=== PATIENT | female | born 1985 | race Caucasian/White ===

== ENCOUNTER → 2019-02-26 | Outpatient (CLI) | payer OTHER ==
--- NOTE | 2019-02-26 16:32 | EXE ---
[place] [address] STRESS ECHOCARDIOGRAM Name: DIANE DÍAZ Room: [facility]#: [id number] Admission: 02/26/19 Attend Phys: Sergo Acuña, Discharge: Date of : 85 Date of Service: 02/26/19 1631 Report #: [id number] THIS REPORT FOR: //name// APPROVED REPORT Study performed: 02/26/2019 15:23:31 Exam: Stress Echocardiogram Indication: Syncope Patient Location: Out-Patient Stress Nurse: Kirsty Michael RN Supervising Physician: Etienne Shi MD Ht: 5 ft 2 in HR: 78 bpm BP: 135/88 mmHg Medical History Cardiac Risk Factors: FHX of CAD Procedure The patient underwent an Exercise Stress Test using the Abdi Protocol. Blood pressure, heart rate, and EKG were monitored. An Echocardiogram was performed by sales technician in four stages in quad fashion. At peak stress, four selected images were obtained and placed side by side with resting images for comparison. Stress Test Details Stress Test: Exercise stress testing was performed using a Abdi protocol. HR Resting HR: 78 bpm Max Heart Rate (APMHR): 186 bpm Max HR Achieved: 178 bpm Target HR (85% APMHR): 158 bpm % of APMHR: 95 Recovery HR: 98 bpm HR response to stress: Normal HR response to stress BP Resting BP: 135/88 mmHg Max BP: 172/83 mmHg Recovery BP: 112/80 mmHg BP response to stress: Normal blood pressure response to stress. ECG Resting ECG: Sinus Rhythm Stress ECG: Sinus Rhythm, [place] [address] STRESS ECHOCARDIOGRAM Name: DIANE DÍAZ Room: [facility]#: [id number] Admission: 02/26/19 Attend Phys: Sergo Acuña, Discharge: Date of : 85 Date of Service: 02/26/19 1631 Report #: [id number] ST Change: Upsloping ST depression Maximum ST Deviation: 0.5 mm Arrhythmia: None Recovery ECG: Sinus Rhythm Recovery ST Change: Normal Recovery ST Deviation: 0 mm Recovery Arrhythmia: None Clinical Reason for Termination: Completed protocol Exercise duration: 7 min 43 sec Highest Stage Achieved: Stage 3: 3.4 mph at 14% grade. Exercise capacity: 9.71 METs Pre-Stress Echo The resting Echocardiogram showed normal left ventricular contractility with an estimated Ejection Fraction of about 60-65%. Post-Stress Echo The stress Echocardiogram showed normal left ventricular contractility with an estimated Ejection Fraction of about >70%. Compared to rest, there were no stress-induced wall motion abnormalities. Conclusion Clinical Response: Non-ischemic Exercise Capacity: Average Stress ECG Response: Indeterminant Stress Echo Images: Non-ischemic low risk stress echo for predicitng future cardiac events Other Information Study Quality: Good <Conclusion> low risk stress echo for predicitng future cardiac events <ELECTRONICALLY SIGNED> By: Etienne Shi MD, FACC 02/26/191630 30 30 Etienne Shi MD, FACC /INF
== END ==
LOC: M.CRD 15:00
DX: R55 Syncope and collapse (principal); R06.09 Other forms of dyspnea